=== PATIENT | female | born 1980 | race Caucasian/White ===

== ENCOUNTER 2016-04-08 00:05 | Inpatient (IN) | payer OTHER ==
[~2016-04-08] VITALS: Ht 157.5 cm; Wt 72.1 kg
--- NOTE | 2016-04-08 00:59 | History & Physical ---
General Information and HPI MD Statement: I have seen and personally examined ARELIS GAO and documented this H&P. The patient is a 35 year old female at [40] weeks and [6] days gestation who presented with a chief complaint of [CTXS]. Source of Information: patient Exam Limitations: no limitations History of Present Illness: 35 yo, 40 6/7wks, c/o ctxs since yesterday, getting stronger and closer for 3-4 hours. also c/o she had heavy vaginal discahrge today, used 3 pads, denies any bleeding. reports +FM care started at 8 wks 2 days. 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 Home Who Do You Live With? spouse Primary Language: Z[place]ian Smoking Status: Never Smoked ETOH Use: denies use Illicit Drug Use: denies illicit drug use Review of Systems Review of Systems Constitutional: Reports: no symptoms. EENTM: Reports: no symptoms. Cardiovascular: Reports: no symptoms. Respiratory: Reports: no symptoms. GI: Reports: no symptoms. Genitourinary: Reports: see HPI. Musculoskeletal: Reports: no symptoms. Skin: Reports: no symptoms. Neurological/Psychological: Reports: no symptoms. Hematologic/Endocrine: Reports: no symptoms. Immunologic/Allergic: Reports: see HPI. All Other Systems: Reviewed and Negative Date of LMP: 06/27/15 Post Menopausal: No Exam & Diagnostic Data Obstetric Exam Wgt Gained During : 40lbs Pelvimetry: adequate Dilation (cm): 4 Effacement (%): 60 Station: -2 Membranes: intact Fluid: unknown Fundal Height (cm): 40 Multiple Gestation? No Contractions: q5-6 min Infant #1 - FHR Baseline: 130 Category: 1 Estimated Weight: 3000g Presentation: vertex Patient for Induction? No Physical Exam: VSS General: NAD Abdomen: gravid, soft, nontender. Ext: DCT (-) Labs Blood Type & Rh: B positive Antibody Screen: negative Hct/Hgb & Platelets #1: 12.7/40.4%,[id number] Hct/Hgb & Platelets #2: 10.6/33.7%, [id number] Rubella: immune VDRL #1: negative VDRL #2: negative HbsAg: negative HIV #1: negative HIV #2 negative 1 Hr P Group B Strep: negative Initial Ultrasound: IUP at 8wks 2 days Anatomy Ultrasound: normal Genetic Testing: normal Assessment/Plan Assessment/Plan: 35yo, 40 6/7wks,labor 1. admit pt, admission labs. 2 pain management as needed 3.monitor closely As Ranked By This Provider Problem List: 1. Core Measures/Miscellaneous Venous Thromboembolism VTE Risk Factors: / VTE Contraindications: No Contraindications VTE Prophylaxis Ordered Inpt: Early Ambulation VTE Diagnosis: No Beta Estefania Is Beta Estefania a Home Med? No Antibiotics Is Patient on Antibiotics? No Attending MD Review Statement Attending Statement Attending MD Statement: examined this patient, discussed with family, discussed w/nursing
[2016-04-08 01:36] LABS: ABSOLUTE BASOPHIL COUNT 0.1 /CUMM (0.0-0.2); ABSOLUTE EOSINOPHIL COUNT 0 /CUMM (0.0-0.7); ABSOLUTE GRANULOCYTE CT 13.1 /CUMM (1.4-6.5); ABSOLUTE LYMPH COUNT 2.2 /CUMM (1.2-3.4); BASOPHIL % 0.3 % (0.0-2.0); EOSINOPHIL % 0.2 % (0-5); GRANULOCYTE % 80.2 % (42.2-75.2); HEMATOCRIT 40.5 % (37-47); MEAN CORPUSCULAR HGB 29.9 PG (27.0-31.0); MEAN PLATELET VOLUME 10.3 FL (7.4-10.4); PLATELET COUNT 223 /CUMM (130-400); RBC DISTRIBUTION WIDTH 14.7 % (11.5-14.5); RED BLOOD CELL CT 4.61 /CUMM (4.20-5.40); WHITE BLOOD CELL COUNT 16.3 /CUMM (4.8-10.8)
--- NOTE | 2016-04-08 10:48 | Labor & Delivery Summary ---
Delivery Summary Vaginal Delivery: Vaginal: spontaneous Episiotomy/Lacerations: Type: SECOND DEGREE MIDLINE Repair: 30 POLYSORB Anesthesia: NESSICAINE 10CC Placenta: Placenta: spontanteous, normal, 3 vessel, NUCHAL ARM Anesthesia: LOCAL Apgars - 1 Min: 9 Apgars - 5 Min: 9 Additional Comments: PRIMIP WITH NO EPIDURAL DELIVERED FEMALE INFANT
[2016-04-09 08:56] LABS: ABSOLUTE BASOPHIL COUNT 0 /CUMM (0.0-0.2); ABSOLUTE EOSINOPHIL COUNT 0 /CUMM (0.0-0.7); BASOPHIL % 0.2 % (0.0-2.0); EOSINOPHIL % 0.3 % (0-5); MEAN CORPUSCULAR HGB 30.1 PG (27.0-31.0); RED BLOOD CELL CT 3.48 /CUMM (4.20-5.40)
[2016-04-09 09:17] LABS: ABSOLUTE GRANULOCYTE CT 8.5 /CUMM (1.4-6.5); ABSOLUTE LYMPH COUNT 2.6 /CUMM (1.2-3.4); ABSOLUTE MONOCYTE COUNT 0.5 /CUMM (0.10-0.60); GRANULOCYTE % 72.6 % (42.2-75.2); HEMATOCRIT 30.8 % (37-47); MEAN CORPUSCULAR HGB CONC 34.1 G/DL (33.0-37.0); MEAN CORPUSCULAR VOLUME 88.3 FL (81.0-99.0); MEAN PLATELET VOLUME 10.2 FL (7.4-10.4); PLATELET COUNT 177 /CUMM (130-400); RBC DISTRIBUTION WIDTH 15.4 % (11.5-14.5); WHITE BLOOD CELL COUNT 11.8 /CUMM (4.8-10.8)
--- NOTE | 2016-04-09 10:56 | PN- OBGYN ---
Surgical Brief Attending Note Brief Attending Note: PPD#1 pt is resting in bed, feeling well, no complaints PE: VSS CV RRR lungs CTA B/L Abdomen: soft, nontender, uetrus firm, fundus below umbilicus, lochia mild Ext: DCT (-) A/P: 35 yo, s/p , PPD #1 1. encourage ambulation, encourage 2.RT PP care
[2016-04-10] MEDS ORDERED: IBUPROFEN800 M1 PO (09:53)
--- NOTE | 2016-04-10 11:19 | PN- OBGYN ---
Surgical Brief Attending Note Brief Attending Note: Patient is without complaints. She is doing well. Small lochia. Breast- feeding. She is an bleeding, voiding, tolerating pain and by mouth. Vital signs are stable Gen. exam: No acute distress Abdomen: Soft, fundus firm at umbilicus Extremities without calf tenderness or edema Laboratory Tests 04/09/16 0719: CBC w Diff NO MAN DIFF REQ, RBC 3.48 L, MCV 88.3, MCH 30.1, RDW 15.4 H, MPV 10.2, Gran % 72.6, Lymphocytes % 22.4, Monocytes % 4.5, Eosinophils % 0.3, Basophils % 0.2, Absolute Granulocytes 8.5 H, Absolute Lymphocytes 2.6, Absolute Monocytes 0.5, Absolute Eosinophils 0, Absolute Basophils 0, PUBS MCHC 34.1 04/08/16 0108: CBC w Diff MAN DIFF ORDERED, RBC 4.61, MCV 88.0, MCH 29.9, RDW 14.7 H, MPV 10.3 , Gran % 80.2 H, Lymphocytes % 13.4 L, Monocytes % 5.9, Eosinophils % 0.2, Basophils % 0.3, Absolute Granulocytes 13.1 H, Absolute Lymphocytes 2.2, Absolute Monocytes 1.0 H, Absolute Eosinophils 0, Absolute Basophils 0.1, Platelet Estimate ADEQUATE, Normocytic RBCs VERIFIED, Normochromic RBCs VERIFIED , PUBS MCHC 34.0, Urinalysis MOD H, Urine Color YEL, Urine Clarity HAZY H, Urine pH 7.5, Ur Specific [place] 1.015, Urine Protein NEG, Urine Ketones NEG, Urine Nitrite NEG, Urine Bilirubin NEG, Urine Urobilinogen 0.2, Ur Leukocyte Esterase NEG, Ur Microscopic SEDIMENT EXAMINED, Urine RBC 1-3, Urine WBC 5-10 H , Ur Epithelial Cells MOD H, Urine Mucus MOD H, Urine Hemoglobin TRACE-INTACT, Urine Glucose NEG Microbiology 04/08 07 URINE ROUT: Urine Culture - COMP Impression and plan: day #2. Doing well. Discharged today. Precautions advised.
== END 2016-04-10 11:10 | DRG 775 ==
LOC: CBCO 00:05 → GNO 00:41
PROVIDERS: Obstetrics & Gynecology; ADMIT Obstetrics & Gynecology
PROC: 10E0XZZ Delivery of Products of Conception, External Approach (ICD-10-PCS; principal; 2016-04-08)
PROC: 0HQ9XZZ Repair Perineum Skin, External Approach (ICD-10-PCS; principal; 2016-04-08)
DX: O70.0 First degree perineal laceration during delivery (principal); E03.9 Hypothyroidism, unspecified; Z37.0 Single live birth; Z3A.40 40 weeks gestation of pregnancy; O69.82X0 Labor and delivery complicated by other cord entanglement, without compression, not applicable or unspecified; O99.284 Endocrine, nutritional and metabolic diseases complicating childbirth
CPT/HCPCS: GNOS; 36415; 81001; 84112; 87086; 88307; J1885; J7120